=== PATIENT | female | born 1950 | race Caucasian/White ===

== ENCOUNTER 2017-05-13 08:00 | Emergency (ER) | payer SELFPAY ==
[~2017-05-13] VITALS: Ht 175.3 cm; Wt 98.6 kg
[2017-05-13] MEDS ORDERED: OXYMETAZOLINE HCL 0.05% NA SPR 15 ML BTL ONE (08:04)
[2017-05-13 08:09] VITALS: TEMP 36.9; Ht 175.3 cm; Wt 98.6 kg
--- NOTE | 2017-05-13 08:18 | EMERGENCY ROOM VISIT NOTE ---
History Report prepared by Alanis: Mervat Rodríguez Under the Supervision of: Toña MccoyO. First contact with patient: 07:56 Chief Complaint: NOSE BLEED (MINOR) Stated Complaint: EPISTAXIS History of Present Illness The patient is a 66 year old female who presents to the Emergency Room with complaints of a persistent bilateral epistaxis that began around one hour prior to arrival. The patient reports that she just blew her nose this morning and her nose began bleeding. She states that this happened to her a few months ago as well. The patient denies feeling congested at all. She denies being on any anticoagulants and denies any other medication use. The patient does report that she took 1 Advil yesterday. She states that she developed seasonal allergies. The patient states that she is feel anxious due to the bleeding. EMS reports that the patient has been hypertensive en-route to the emergency department. The patient denies any lightheadedness, dizziness, headache, or nausea. Source of History: patient Onset: one hour prior to arrival Position: nose Quality: other (epistaxis) Timing: other (persistent) Associated Symptoms: No headache, No nausea Review of Systems See HPI for pertinent positives & negatives. A total of 10 systems reviewed and were otherwise negative. Past Medical & Surgical Surgical Problems: (1) History of hysterectomy Family History Diabetes mellitus FHx: cancer Gallbladder disease Heart disease Hypertension Kidney disease Kidney stones Lung disease Seizures Social History Smoking Status: Never Smoker Smokeless Tobacco Use: No Alcohol Use: none Marital Status: Housing Status: lives alone Occupation Status: employed Current/Historical Medications No Active Prescriptions or Reported Meds Allergies Coded Allergies: No Known Allergies (Unverified , 05/13/17) Physical Exam Vital Signs Date Time Temp Pulse Resp B/P (MAP) Pulse Ox O2 Delivery O2 Flow Rate FiO2 05/13/17 09:39 81 18 136/85 93 Room Air 05/13/17 08:31 94 20 155/85 95 Room Air 05/13/17 08:09 36.9 97 20 212/110 94 Room Air Physical Exam GENERAL: alert, well appearing, well nourished, no distress, non-toxic EYE EXAM: normal conjunctiva, PERRL and EOM's grossly intact OROPHARYNX: no exudate, no erythema, lips, buccal mucosa, and tongue normal and mucous membranes are moist NOSE: Left naris revealed fresh blood, no clot. NECK: supple, no nuchal rigidity, no adenopathy, non-tender LUNGS: Clear to auscultation. Normal chest wall mechanics HEART: no murmurs, S1 normal and S2 normal ABDOMEN: abdomen soft, non-tender, normo-active bowel sounds, no masses, no rebound or guarding. BACK: Back is symmetrical on inspection and there is no deformity, no midline tenderness, no CVA tenderness. SKIN: no rashes and no bruising UPPER EXTREMITIES: upper extremities are grossly normal. LOWER EXTREMITIES: No pitting edema. NEURO EXAM: Normal sensorium, cranial nerves II-XII grossly intact, normal speech, no gross weakness of arms, no gross weakness of legs. Medical Decision & Procedures Medications Administered Medications (Trade) Dose Ordered Sig/Elan Route Start Time Stop Time Status Last Admin Dose Admin Oxymetazoline HCl (Afrin 0.05% Nasal [place]) 75 sprays STK-MED ONCE .ROUTE 05/13/17 08:04 05/13/17 08:05 DC 05/13/17 08:04 75 SPRAYS ED Course 0802: The patient was evaluated in room A10. A complete history and physical exam was performed. 0804: Ordered Afrin 0.05% Nasal [place] 75 sprays .route. 0830: I reevaluated the patient and she is not oozing and has no clots in the right naris. Her blood pressure has markedly improved. On reexamination of the nose, the patient has a single spot on the medial aspect and mucosal surface of the left naris with a small amount of fresh blood, no drainage no active bleeding. Small fresh clot noted. 09:20 no recurrent bleeding, patient states feeling well, no trouble breathing or trouble swallowing, denies nausea or vomiting, denies any taste of blood in her throat. Discussed with patient symptoms watch return for, and initial treatment of nosebleeds at home, she verbalized understanding was agreeable with plan. Likely initial hypertensive readings related to stress and anxiety the situation as they have markedly improved with monitoring here. Medical Decision Differential diagnosis: Etiologies such as anterior epistaxis, coagulopathy, traumatic injury, fracture , septal hematoma, posterior epistaxis as well as other pathologies were entertained. Medication Reconcilliation Current Medication List: was personally reviewed by me Blood Pressure Screening Patient's blood pressure: Elevated blood pressure Blood pressure disposition: Elevated BP felt to be situational, Did not require urgent referral Impression Primary Impression: Epistaxis Scribe Attestation The scribe's documentation has been prepared under my direction and personally reviewed by me in its entirety. I confirm that the note above accurately reflects all work, treatment, procedures, and medical decision making performed by me. Departure Information Dispostion Home / Self-Care Prescriptions No Active Prescriptions or Reported Meds Referrals No Doctor, Assigned (PCP) Forms HOME CARE DOCUMENTATION FORM, IMPORTANT VISIT INFORMATION, WORK / SCHOOL INSTRUCTIONS Patient Instructions My [facility] Additional Instructions Please avoid frequent nose blowing as this can contribute to rebleeding. Please drink a per nasal passages moist. You may use a saline nasal spray if you feel your nares are dry. If you have any recurrent bleeding, please begin by trying to pinch the nose and hold this for 5-10 minutes, you may also apply an ice pack to the bridge of your nose. If you have persistent bleeding, develop vomiting, dizziness, fevers, or unable brief, or you have any other new concerns, please return the emergency room.
[2017-05-13 09:39] VITALS: BP 136/85; PULSE 81; O2SAT 93
== END 2017-05-13 09:48 | disposition home or self-care (01) ==
LOC: EDBD 08:00 → C.EDA 08:00
DX: R04.0 Epistaxis (principal); Z90.710 Acquired absence of both cervix and uterus; Z83.3 Family history of diabetes mellitus; Z80.9 Family history of malignant neoplasm, unspecified; Z83.79 Family history of other diseases of the digestive system; Z82.49 Family history of ischemic heart disease and other diseases of the circulatory system; Z84.1 Family history of disorders of kidney and ureter; Z82.0 Family history of epilepsy and other diseases of the nervous system

== ENCOUNTER 2017-05-19 10:13 | Emergency (ER) | payer SELFPAY ==
[~2017-05-19] VITALS: Ht 175.3 cm; Wt 94.4 kg
[2017-05-19 10:18] VITALS: TEMP 36.6; Ht 175.3 cm; Wt 94.4 kg
[2017-05-19 11:21] LABS: BASO % 0.2 %; BASO ABS # 0.01 K/uL (0-0.2); COMPLETE YES; EOS % 0.4 %; HEMATOCRIT 39.1 % (37-47); IG% 0.4 %; LYMPH % 32.3 %; LYMPH ABS # 1.83 K/uL (1.2-3.4); MEAN CELL VOLUME 89.3 fL (80-100); MEAN CORPUSCULAR HGB CONC 32.5 g/dl (32-36); MEAN PLATELET VOLUME 9.8 fL (7.4-10.4); MONO % 4.2 %; NEUT % 62.5 %; PLATELET COUNT 291 K/uL (130-400); RED BLOOD COUNT 4.38 M/uL (4.2-5.4); WHITE BLOOD COUNT 5.67 K/uL (4.8-10.8)
[2017-05-19 11:36] LABS: PROTHROMBIN TIME (PATIENT) 10.9 SECONDS (9.0-12.0)
[2017-05-19 11:41] LABS: CALCIUM 9.5 mg/dl (8.5-10.1); CREATININE 0.82 mg/dl (0.60-1.20); MAGNESIUM 2.2 mg/dl (1.8-2.4); POTASSIUM 3.7 mmol/L (3.5-5.1)
--- NOTE | 2017-05-19 12:09 | EMERGENCY ROOM VISIT NOTE ---
History Report prepared by Alanis: Nav Rothman Under the Supervision of: Dr. Bishnu Barrett M.D. First contact with patient: 10:22 Chief Complaint: OTHER COMPLAINT Stated Complaint: WEAK- PRESSURE IN FOREHEAD AND AROUND SINUS AREA History of Present Illness The patient is a 66 year old white female who presents to the ED with a cc of persistent facial sinus congestion beginning last week. Describes feeling as a "pressure". Has been having frequent nosebleeds recently. Not on any blood thinners. No recent facial trauma. Positive generalized weakness and chills. Negative cough or nausea. No appetite recently. Right nostril has been draining , left has been very stuffed up. Notes that she has a history of a polyp in her right nostril, but is unsure if it is still present. Source of History: patient Onset: Last week Position: head (facial sinuses) Quality: pressure Timing: other (persistent) Associated Symptoms: + chills, + weakness (generalized), No cough, No nausea Review of Systems See HPI for pertinent positives and negatives. A total of ten systems were reviewed and were otherwise negative. Past Medical & Surgical Surgical Problems: (1) History of hysterectomy Family History Diabetes mellitus FHx: cancer Gallbladder disease Heart disease Hypertension Kidney disease Kidney stones Lung disease Seizures Social History Smoking Status: Never Smoker Alcohol Use: none Marital Status: Housing Status: lives alone Occupation Status: employed Current/Historical Medications No Active Prescriptions or Reported Meds Allergies Coded Allergies: No Known Allergies (Unverified , 05/19/17) Physical Exam Vital Signs Date Time Temp Pulse Resp B/P (MAP) Pulse Ox O2 Delivery O2 Flow Rate FiO2 05/19/17 12:59 71 18 133/79 98 Room Air 05/19/17 10:18 36.6 88 20 156/94 96 Room Air Physical Exam GENERAL: Awake, alert, well-appearing, NAD HENT: Normocephalic, atraumatic. Mild erythema but no swelling of the nares. Mucosal bleeding absent. No septal hematoma. Mild frontal and maxillary reproducible tenderness to palpation without swelling, erythema or fluctuance. Posterior oropharynx is clear without exudate. EYES: Normal conjunctiva. Sclera non-icteric. NECK: Supple. No nuchal rigidity. FROM. No stridor. RESPIRATORY: CTAB, no rhonchi, wheezing, crackles CARDIAC: RRR, no MRG ABDOMEN: Soft, NTND, BS+ MSK: No chest wall TTP, no LE edema NEURO: GCS 15, CN 2-12 intact, moves all 4s on command SKIN: No rash or jaundice noted. Medical Decision & Procedures Laboratory Results 05/19/17 11:03 Red Blood Count 4.38, Mean Corpuscular Volume 89.3, Mean Corpuscular Hemoglobin 29.0, Mean Corpuscular Hemoglobin Concent 32.5, Mean Platelet Volume 9.8, Neutrophils (%) (Auto) 62.5, Lymphocytes (%) (Auto) 32.3, Monocytes (%) (Auto) 4.2, Eosinophils (%) (Auto) 0.4, Basophils (%) (Auto) 0.2, Neutrophils # (Auto) 3.55, Lymphocytes # (Auto) 1.83, Monocytes # (Auto) 0.24, Eosinophils # (Auto) 0.02, Basophils # (Auto) 0.01 05/19/17 11:03 Test 05/19/17 11:03 White Blood Count 5.67 K/uL (4.8-10.8) Red Blood Count 4.38 M/uL (4.2-5.4) Hemoglobin 12.7 g/dL (12.0-16.0) Hematocrit 39.1 % (37-47) Mean Corpuscular Volume 89.3 fL (80-100) Mean Corpuscular Hemoglobin 29.0 pg (25-34) Mean Corpuscular Hemoglobin Concent 32.5 g/dl (32-36) Platelet Count 291 K/uL (130-400) Mean Platelet Volume 9.8 fL (7.4-10.4) Neutrophils (%) (Auto) 62.5 % Lymphocytes (%) (Auto) 32.3 % Monocytes (%) (Auto) 4.2 % Eosinophils (%) (Auto) 0.4 % Basophils (%) (Auto) 0.2 % Neutrophils # (Auto) 3.55 K/uL (1.4-6.5) Lymphocytes # (Auto) 1.83 K/uL (1.2-3.4) Monocytes # (Auto) 0.24 K/uL (0.11-0.59) Eosinophils # (Auto) 0.02 K/uL (0-0.5) Basophils # (Auto) 0.01 K/uL (0-0.2) RDW Standard Deviation 41.8 fL (36.4-46.3) RDW Coefficient of Variation 12.8 % (11.5-14.5) Immature Granulocyte % (Auto) 0.4 % Immature Granulocyte # (Auto) 0.02 K/uL (0.00-0.02) Prothrombin Time 10.9 SECONDS (9.0-12.0) Prothromb Time International Ratio 1.0 (0.9-1.1) Activated Partial Thromboplast Time 25.9 SECONDS (21.0-31.0) Partial Thromboplastin Ratio 1.0 Anion Gap 8.0 mmol/L (3-11) Est Creatinine Clear Calc Drug Dose 83.7 ml/min Estimated GFR () 87.0 Estimated GFR (Non- 75.1 BUN/Creatinine Ratio 19.0 (10-20) Calcium Level 9.5 mg/dl (8.5-10.1) Magnesium Level 2.2 mg/dl (1.8-2.4) Troponin I < 0.015 ng/ml (0-0.045) Laboratory results reviewed by me ECG Indication: weakness Rate (beats per minute): 67 Rhythm: normal sinus Findings: Q waves (Inferior), other (Normal intervals. Normal axis. No other STS change or TWI. ) Comparison ECG Date: no prior available ED Course 1027: The patient was evaluated in room B9. A complete history and physical exam was performed. 1215: I reevaluated the patient. Discussed results and discharge instructions: she verbalized understanding and agreement. The patient is ready for discharge. Medical Decision The patient is a 66 year old white female who presents to the ED with a cc of persistent facial sinus congestion beginning last week. Differential diagnosis includes but is not limited to; sinusitis, rhinitis, pharyngitis, URI, epistaxis , and septal hematoma. Patient was seen and evaluated at the bedside. Patient had no active epistaxis. Patient did complain of some generalized fatigue. Patient's EKG was abnormal and she did have some inferior Q waves but did not complain of any chest pain or shortness of breath. Patient was told to follow-up with her PCP for this. Patient was given return precautions as well as at-home instructions as is if she has recurrence of epistaxis. Patient's hemoglobin and platelet count were normal. Patient had no abnormalities in her coagulation studies. Patient was instructed follow-up, discharge, and return precautions. Patient agreed with plan of care patient safely discharged home. Medication Reconcilliation Current Medication List: was personally reviewed by me Blood Pressure Screening Patient's blood pressure: Elevated blood pressure Blood pressure disposition: Elevated BP felt to be situational Impression Primary Impression: Sinus congestion Additional Impressions: History of epistaxis Abnormal ECG Scribe Attestation The scribe's documentation has been prepared under my direction and personally reviewed by me in its entirety. I confirm that the note above accurately reflects all work, treatment, procedures, and medical decision making performed by me. Departure Information Dispostion Home / Self-Care Prescriptions No Active Prescriptions or Reported Meds Referrals No Doctor, Assigned (PCP) Patient Instructions ED Sinusitis No Abx, My [facility] Additional Instructions Please return to the emergency department if you have worsening or recurrent symptoms not amenable to at-home treatment. Please call for a follow-up appointment with her primary care physician. Please take your medications as prescribed. If you have other concerns and/or complaints please feel free to also call your primary care physician's office or return the ED for further evaluation, management, and treatment. For your nose to may use petroleum jelly within the inside of the nose to prevent desiccation. He may also use humidified air. Please refrain from blowing her nose picking or scratching her nose. If you do sneeze sneeze with her mouth open. If you do have a recurrence in nasal bleeding please follow the instructions as described at the bedside. You have worsening or persistent symptoms please return to the emergency department for further care. Please f/u w/ your PCP as you had an abnormal EKG. If you develop CP or SOB please return to the ED for further evaluation. You were found to have an elevated blood pressure today (>120 sytolic or >90 diastolic). Per medicare guidelines, you need to follow up with this blood pressure screening with your Primary Care Physician (PCP). For a new PCP call [phone]. You have been examined and treated today on an emergency basis only. This is not a substitute for, or an effort to provide, complete comprehensive medical care. It is impossible to recognize and treat all injuries or illnesses in a single emergency department visit. It is therefore important that you follow up closely with [facility]. Call as soon as possible for an appointment. Thank you for your time and consideration. I look forward to speaking with you again soon. Please don't hesitate to call us if you have any questions. Problem Qualifiers
[2017-05-19 12:59] VITALS: BP 133/79; PULSE 71; O2SAT 98
== END 2017-05-19 13:11 | disposition home or self-care (01) ==
LOC: C.EDB 10:15
DX: R09.81 Nasal congestion (principal); R04.0 Epistaxis; R94.31 Abnormal electrocardiogram [ECG] [EKG]; Z83.3 Family history of diabetes mellitus; Z82.49 Family history of ischemic heart disease and other diseases of the circulatory system; Z82.0 Family history of epilepsy and other diseases of the nervous system